=== PATIENT | female | born 1955 | race Two or more races ===

== ENCOUNTER 2020-12-22 08:58 | Outpatient (CLI) | payer OTHER ==
[~2020-12-22 08:58] MED LIST: LIPITOR20 MG PO
== END 2020-12-22 09:02 | disposition home or self-care (01) ==
LOC: SONOGRAMA 08:58
PROVIDERS: ATTEND Pathology Anatomic Pathology & Clinical Pathology
DX: E03.8 Other specified hypothyroidism (principal)